=== PATIENT | male | born 1945 | race Caucasian/White ===

== ENCOUNTER 2018-06-27 06:10 | Day surgery (SDC) | payer MEDICARE, BC ==
[~2018-06-27 06:10] MED LIST: Lactated Ringers 1,000 ML IV SCH
[2018-06-27] MEDS ORDERED: fentaNYL 100 MCG/2 ML SDV ONE (07:48)
[2018-06-27] MEDS ORDERED: Propofol 200 MG/20 ML SDV ONE ×2 (07:48→08:12)
--- NOTE | 2018-06-27 15:01 | OR ---
PRE-OPERATIVE DIAGNOSES: 1. History of colon polyps. Last colonoscopy was about 5 years ago. 2. Positive family history of colon cancer in mother who was diagnosed in her 70s. POST-OPERATIVE DIAGNOSES: 1. Three small polyps removed using cold forceps. a. A 2 mm x2 at 50 cm. b. A 2 mm at 45 cm. 2. Fairly long colon requiring moderate suctioning. PROCEDURE: Colonoscopy with polypectomy x3 using cold forceps. ANESTHESIA: Monitored anesthesia care. BOWEL PREP: Good, but did require a moderate amount of suctioning. DESCRIPTION OF PROCEDURE: Lester is a 73-year-old male who was brought to the endoscopy suite after discussing risks and benefits of the procedure. Informed consent was obtained for conscious sedation and colonoscopy with or without biopsy and/or polypectomy. We also discussed possibility of missed lesions. Pre-procedure exam was unremarkable. IV, oxygen, and monitors were placed. The patient was placed in the left lateral decubitus position. Sedation was administered and a digital rectal exam was performed and unremarkable except for mild to moderately enlarged prostate without any palpable nodules. Colonoscope was passed into the rectum and slowly advanced all the way to the cecum. The patient had a rather long colon which did require some scope maneuvering and abdominal pressure to obtain cecal intubation. Cecum was viewed and photographed. The colonoscope was slowly withdrawn and the mucosa was closed observed in a direct circumferential manner. The ascending colon was unremarkable. The transverse colon was unremarkable. The descending colon revealed a 2 mm polyp x2 at 50 cm and 2 mm polyp at 45 cm. All removed using cold forceps. Sigmoid colon unremarkable. Retroflexion was performed. Rectal mucosa was unremarkable except for maybe some minimal hemorrhoids, not acutely inflamed. Scope was removed. The patient tolerated the procedure well. The patient was monitored until that baseline status. Discharge instructions were reviewed and the patient was discharged in good condition. COMPLICATIONS: None. TOTAL TIME: 25 minutes. ESTIMATED BLOOD LOSS: Less than 1 mL. RECOMMENDATIONS/FOLLOW-UP: We will await results of path report to determine ideal followup interval. The patient can continue on his aspirin given his underlying heart disease. I would like to kindly thank Kyara Forrest for this referral. DMB: 06/27/2018 09:07:50 MODL: 06/27/2018 11:32:53 /[id number]
== END 2018-06-27 10:15 | disposition home or self-care (01) ==
LOC: VM.SDS 06:10
PROVIDERS: ATTEND Family Medicine
DX: Z12.11 Encounter for screening for malignant neoplasm of colon (principal); K63.5 Polyp of colon; K64.8 Other hemorrhoids; I25.10 Atherosclerotic heart disease of native coronary artery without angina pectoris; I25.5 Ischemic cardiomyopathy; E11.9 Type 2 diabetes mellitus without complications; E78.5 Hyperlipidemia, unspecified; E66.9 Obesity, unspecified; Z68.37 Body mass index [BMI] 37.0-37.9, adult; Z88.0 Allergy status to penicillin; Z95.1 Presence of aortocoronary bypass graft; Z87.891 Personal history of nicotine dependence; Z86.010 Personal history of colon polyps; Z80.0 Family history of malignant neoplasm of digestive organs; Z79.4 Long term (current) use of insulin; Z79.82 Long term (current) use of aspirin; Z79.899 Other long term (current) drug therapy
CPT/HCPCS: 00812; 45380; 82962; J2704; J3010; J7120

== ENCOUNTER 2023-07-19 07:07 | Day surgery (SDC) | payer MEDICARE, BC ==
[2023-07-19] MEDS ORDERED: Midazolam 1 MG/ML 2 ML SDV ONE (09:06)
[2023-07-19] MEDS ORDERED: fentaNYL 100 MCG/2 ML SDV ONE (09:06)
[2023-07-19] MEDS ORDERED: Propofol 200 MG/20 ML SDV ONE (09:06)
== END 2023-07-19 10:50 | disposition home or self-care (01) ==
LOC: VM.SDS 07:07
PROVIDERS: ATTEND Family Medicine
DX: Z12.11 Encounter for screening for malignant neoplasm of colon (principal); D12.0 Benign neoplasm of cecum; D12.8 Benign neoplasm of rectum; D12.2 Benign neoplasm of ascending colon; D12.3 Benign neoplasm of transverse colon; I10 Essential (primary) hypertension; E11.9 Type 2 diabetes mellitus without complications; I25.10 Atherosclerotic heart disease of native coronary artery without angina pectoris; E78.5 Hyperlipidemia, unspecified; Z95.1 Presence of aortocoronary bypass graft; Z79.4 Long term (current) use of insulin; Z79.84 Long term (current) use of oral hypoglycemic drugs; Z79.82 Long term (current) use of aspirin; Z79.899 Other long term (current) drug therapy; Z88.0 Allergy status to penicillin; Z86.010 Personal history of colon polyps
CPT/HCPCS: 00811; 82947; 88305; 99100; J2250; J2704; J3010

== ENCOUNTER 2024-07-27 11:00 | Emergency (ER) | payer MEDICARE, BC ==
[2024-07-27 11:26] LABS: BASOPHILS PERCENT AUTO 0.5 % (0.2-1.2); EOSINOPHILS ABSOLUTE AUTO 0.1 x10^3/uL (0.0-0.5); EOSINOPHILS PERCENT AUTO 1.6 % (0.0-4.0); HEMATOCRIT 44.3 % (40.0-52.0); HEMOGLOBIN 15.2 g/dL (14.0-18.0); IMMATURE GRAN ABSOLUTE AUTO 0.02 x10^3/uL (0.00-0.07); LYMPHOCYTES ABSOLUTE AUTO 0.5 x10^3/uL (1.0-4.8); LYMPHOCYTES PERCENT AUTO 6.4 % (25.0-50.0); MEAN CORPUSCULAR HEMOGLOBIN 28.1 pg (26.0-32.0); MEAN CORPUSCULAR HGB CONC 34.3 g/dL (32.0-36.0); MONOCYTES ABSOLUTE AUTO 0.7 x10^3/uL (0.0-0.8); MONOCYTES PERCENT AUTO 8.5 % (2.0-11.0); NEUTROPHILS ABSOLUTE AUTO 6.8 x10^3/uL (1.8-7.7); NEUTROPHILS PERCENT AUTO 82.8 % (50.0-80.0); PLATELET COUNT,PLT 234 x10^3/uL (130-400); WHITE BLOOD CELL COUNT,WBC 8.3 x10^3/uL (4.0-10.0)
[2024-07-27 11:38] LABS: A/G RATIO 1.06; ALBUMIN 3.4 g/dL (3.4-5.0); BILIRUBIN TOTAL 0.8 mg/dL (0.2-1.0); CREATININE 1.3 mg/dL (0.70-1.30); EST CRCL DRUG DOSING (CG) 48.27 mL/min; MAGNESIUM 1.8 mg/dL (1.8-2.4); POTASSIUM,K 3.7 mmol/L (3.5-5.1); PROTEIN TOTAL,TP 6.6 g/dL (6.4-8.2)
[2024-07-27 11:40] LABS: ANION GAP 11.7 mmol/L (5-15)
== END 2024-07-27 11:49 | disposition home or self-care (01) ==
LOC: VM.ED 11:00 → SUPCPDRO 11:00 → VM.ED 11:49
DX: R07.89 Other chest pain (principal); R07.2 Precordial pain; I25.10 Atherosclerotic heart disease of native coronary artery without angina pectoris; I25.2 Old myocardial infarction; E78.00 Pure hypercholesterolemia, unspecified; I10 Essential (primary) hypertension; E11.9 Type 2 diabetes mellitus without complications; Z95.5 Presence of coronary angioplasty implant and graft; Z88.0 Allergy status to penicillin; Z79.4 Long term (current) use of insulin; Z79.82 Long term (current) use of aspirin; Z79.84 Long term (current) use of oral hypoglycemic drugs; Z79.899 Other long term (current) drug therapy
CPT/HCPCS: 80053; 83735; 84484; 85025; 93005; 93010; 99284; 99285